=== PATIENT | male | born 2000 | race Caucasian/White ===

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

== ENCOUNTER 2022-01-19 14:37 | Inpatient (IN) | payer OTHER ==
[~2022-01-19] VITALS: Ht 175.3 cm; Wt 97.7 kg
[~2022-01-19 14:37] MED LIST: KEFLEX500 MG PO
--- NOTE | 2022-01-19 20:35 | NUR ---
REPORT RECEIVED FROM ED RN.
--- NOTE | 2022-01-19 21:30 | NUR ---
PT TO FLOOR VIA STRETCHER. ORDERS RECEIVED. PT ALERT AND ORIENTED. ABLE TO TRANSFER SELF FROM STRETCHER TO BED. ADMISSION COMPLETE. PT REPORTS PAIN IN RIGHT FOOT AND GENERAL DISCOMFORT. REFUSES PRN TYLENOL AT THIS TIME. RIGHT FOOT RED, SWOLLEN, AND WARM TO THE TOUCH. REDNESS OUTLINED. PT REPORTS NUMBNESS AND TINGLING IN TOES. PEDAL PULSES STRONG AND BRISK CAP REFILL NOTED. RLE ELEVATED ON PILLOW. IV ABX INFUSING PER ORDER. FAMILY VISITOR IN ROOM. PT ANXIOUS ABOUT HOSPITAL STAY STATING HE DID NOT WANT TO STAY THE NIGHT. EDUCATION PROVIDED REGARDING ILLNESS AND NEED FOR IV ABX. PT AGREEABLE TO STAY AT LEAST THIS NIGHT. PT ORIENTED TO ROOM AND NURSE CALL LIGHT. DENIES FURTHER QUESTIONS OR CONCERNS AT THIS TIME. CALL LIGHT IN REACH.
--- NOTE | 2022-01-19 22:40 | NUR ---
IVF HUNG PER ORDER. IV ABX INFUSING WNL. PT RESTING IN BED LOOKING AT PHONE. RLE ELEVATED ON PILLOW. FRESH WATER PROVIDED. CALL LIGHT IN REACH.
--- NOTE | 2022-01-20 00:16 | NUR ---
IV PUMP ALARMING. ISSUE RESOLVED. PT DIAPHORETIC AND SHIVERING. TEMP 98.7. LINENS AND GOWN CHANGED. WARM BLANKET PROVIDED.
--- NOTE | 2022-01-20 01:00 | NUR ---
PIV IN LEFT AC FLUSHED WITH 10 ML NS. BRISK BLOOD RETURN NOTED. IV VANCO INFUSING WNL. PT DENIES PAIN WITH INFUSION. PT EDUCATED TO NOTIFY RN IF INFUSION BECOMES PAINFUL. PT VERBALIZES UNDERSTANDING. TEMP 98.7. HR 70'S. SpO2 HIGH 90'S. NO FURTHER NEEDS.
--- NOTE | 2022-01-20 03:01 | NUR ---
PT RESTING WITH EYES CLOSED. AWAKENS FOR VS. WNL. DENIES NEEDS. CALL LIGHT IN REACH.
--- NOTE | 2022-01-20 06:25 | NUR ---
VS AND I&O COMPLETE. PT REPORTS RIGHT FOOT PAIN 01/15. REFUSES PRN FOR PAIN WHEN OFFERED. IV ABX INFUSING WNL. RLE ELEVATED ON PILLOW. REDNESS REMAINS WITHIN OUTLINE. PULSES STRONG BLE. BRISK CAP REFILL NOTED. PT ANXIOUS ABOUT HOSPITALIZATION WANTING TO KNOW WHEN HE CAN GO HOME. DISCUSSED MD WILL BE IN TO MAKE PLAN OF CARE AND PROVIDE RELEASE FROM WORK. PT RECEPTIVE. DENIES FURTHER NEEDS. CALL LIGHT IN REACH.
--- NOTE | 2022-01-20 09:10 | NUR ---
HAD RECD. REPORT FROM NIGHT RN AND ASSUMED ALL CARE OF PT. PT. RESTING IN BED, RIGHT FOOT CELLULITIS AND REDNESS, TENDERNESS AND SWELLING. HE CAN AMBULATE WITH PARTIAL WEIGHT BEARING TO THE BR AND CALLS FOR ALL NEEDS.
--- NOTE | 2022-01-20 10:00 | NUR ---
CALLED TO ROOM, IV HANGING OUT OF SITE ON THE RIGHT ARM, WILL USE THE OTHER IV IN THE LEFT ARM. TEACHING COMPLETED REGARDING SWELLING AT SITE AND INFILTRATION.
--- NOTE | 2022-01-20 12:28 | NUR ---
EXPLAINED ORDER THIS MORNING FOR THE TDAP AND PT. WANTED TO TALK TO HIS FATHER AND FAMILY BEFORE ACCEPTING THIS. WHEN I CHECKED BACK WITH PT. HE SAID THAT HE WILL ACCEPT THE TDAP SHOT.
--- NOTE | 2022-01-20 14:49 | NUR ---
PHARMACY TO SEND TDAP. IV INFUSING ABX, PODIATRY CONSULT IN PROGRESS.
--- NOTE | 2022-01-20 16:00 | NUR ---
Pt chronic ft. issue. Works at [employer]. Concerned as he is unable to work. He does receive food stamps and brother in the room, states pt can stay with him. Pt does not have a pcp, but would like one from [facility]. Will work on this tomorrow. Pt denies other needs. Dr. Duran in the see pt.
--- NOTE | 2022-01-20 17:39 | NUR ---
medications reconciled- patient takes no medications
--- NOTE | 2022-01-20 18:30 | NUR ---
IV VANCOMYCIN DOSE WAS LATE D/T TROUGH DRAWN AT 1600 AND THEN WAS HIGH AND PHARMACY REDOSED MED AND SENT TO FLOOR LATER. IV IN R ARM DC'D EARLIER ACCIDENTALLY BY PT. THEN AFTER ABX'S WERE HANGING A WHILE THE L AC WAS BURNING AND LEAKING, NOT ABLE TO SAVE. IV'S ATTEMPTED X 3 WITH A #20 IN THE RIGHT AC, NEXT TO ORIGINAL SITE. IV ABX HUNG AGAIN, DR. RITTER CALLED TO ALERT TO POSSIBLE NEED FOR PICC RN, NO NEW ORDERS. PT. STATES HE ALWAYS HAS TROUBLE WITH IV'S.
--- NOTE | 2022-01-20 19:35 | NUR ---
SHIFT REPORT RECEIVED FROM DAYSHIFT RN JOSE AT BEDSIDE. pt AWAKE AND RESTING IN BED, HOUSE SUP JIMY IN ROOM TO START SECOND IV VIA US. IV ABX INFUSING WNL TO RIGHT AC. REDDNESS BETWEEN FIRST AND SECOND OUTLINE, WILL MONITOR FOR CHANGES. NO ADDITIONAL NEEDS OR CONCERNS VERBALIZED.
--- NOTE | 2022-01-20 19:58 | NUR ---
HOUSE SUP INSERTED IV VIA ULTRASOUND IN THE LEFT UPPER ARM, #18 G AND 2 1/2 INCHES LONG CATH. TOLERATED FAIRLY WELL. PRIMARY IVF TO RUN LR W 20K AT 125 AND IV VANCOMYCIN WITH DOSE INCREASE 500 MG BAG, CEFEPIME LONG RUN AND FLAGYL IV.
--- NOTE | 2022-01-20 20:55 | NUR ---
in to get vitals, pt up to the bathroom independently, voided and back to bed, soda provided, pt has two friends in room at this time
--- NOTE | 2022-01-20 22:00 | NUR ---
ASSESSMENT COMPLETE, pt AWAKE AND RESTING IN BED. IV ALARMING, pt REPORTS HE DIDN'T WANT TO BE "THAT JANE AND BOTHER US". pt EDUCATED ON NEED TO CALL ENGLISH FACULTY MEMBER IF PUMP ALARMS, pt VERBALIZED EDUCATION. IV ABX INFUSING DIRECTED AND IV FLUIDS INFUSING DIRECTED, IV SITES X2 WNL. BLOOD RETURN NOTED TO BOTH. RLE ELEVATED IN BED WITH PILLOW, pt STATES, "WON'T THAT JUST MOVE THE INFECTION TO THE REST OF MY BODY, pt EDUCATED ON INFECTION CONTROL AND EDEMA MANAGEMENT. STRONG PEDAL PULSES NOTED TO BILATERAL FEET, REDDNESS REMAINS BETWEEN THE INITIAL AND SECOND OUTLINE. WILL MONITOR FOR CHANGES, CALL LIGHT IN REACH.
--- NOTE | 2022-01-20 23:36 | NUR ---
SCHEDULED IV ABX INFUSING DIRECTED, IV SITES X2 BOTH WNL. NO ADDITIONAL NEEDS, CALL LIGHT IN REACH. RLE REMAISN ELEVATED IN BED WITH PILLOW/CHUCKS.
--- NOTE | 2022-01-21 01:35 | NUR ---
ROUNDED ON pt, pt RESTING QUIETLY ON RA. RR EVEN AND UNLABORED, NO DISTRESS NOTED. IV SITES X2 WNL- IV FLUIDS AND IV ABX BOTH INFUSING DIRECTED. CALL LIGHT IN REACH, WILL CONTINUE TO MONITOR FOR CHANGES.
--- NOTE | 2022-01-21 04:12 | NUR ---
ROUNDED ON pt, pt RESTING IN BED. EYES CLOSED, RR EVEN AND UNLABORED. NO DISTRESS NOTED. IV SITES X2 WNL, FLUIDS AND IV ABX INFUSING DIRECTED. CALL LIGHT IN REACH.
--- NOTE | 2022-01-21 05:15 | NUR ---
assessment complete, no acute changes. pt awoke to voice. reddness to rle appears lessened since start of shift, remains elevated in bed. iv sites x2 wnl, new bag iv fluids hung and infusing as directed and scheduled iv abx also infusing wnl. no further needs, vss and fresh water provided. pt denies need to void, will monitor. lab in room for am blood draw.
--- NOTE | 2022-01-21 06:39 | NUR ---
SCHEDULED IV FLAGYL INFUSING DIRECTED. IV SITES X2 BOTH WNL. pt VERBALIZES HE PLANS TO ATTEMPT TO VOID SOON. WILL MONITOR. CALL LIGHT IN REACH.
--- NOTE | 2022-01-21 07:05 | NUR ---
SCHEDULED IV ABX INFUSING DIRECTED, IV SITESX [address] HEADLEY IN ROOM WITH pt. CALL LIGHT IN REACH.
--- NOTE | 2022-01-21 07:30 | NUR ---
REPORT RECEIVED FROM NIGHT RN AND PT. CARE RESUMED. PT. IS ALERT AND ORINETED. DENIES PAIN AT THIS TIME. DR. HEADLEY TOOK A CULTURE THAT THIS NURSE SENT TO THE LAB.
--- NOTE | 2022-01-21 09:00 | NUR ---
PT. IS ALERT AND ORIENTED. HE DENIES PAIN. RIGHT FOOT WRAPPED BY . DRESSING IS C.D.I. CMS INTACT. IVF INFUSING. ASSESSMENT COMPLETED. PT. LEFT RESTING WITH CALL LIGHT IN REACH.
--- NOTE | 2022-01-21 13:15 | NUR ---
PT. USED CALL LIGHT APPROPRIATELY FOR IV BEEPING. ABX DONE AND IV SALINE LOCKED. PT. HAS GOOD APPETITE AND DENIES PAIN AT THIS TIME. ASSESSMENT COMPLETED. DISCUSSED SHOWERING. LEFT RESTING WITH CALL LIGHT IN REACH
--- NOTE | 2022-01-21 14:40 | NUR ---
WENT TO CHECK ON PATIENT TO SEE IF HE WAS DONE WITH HIS SHOWER AND HE WAS. SO WIPED UP HIS SHOWER FLOOR. HE BRUSHED HIS TEETH. PATIENT IS IN BED. TIA AND I WRAPPED HIS FOOT REALY WELL.
--- NOTE | 2022-01-21 14:42 | NUR ---
No change in plan for dc at this time. Pt cont. to plan for dc to brothers home when medically cleared.
--- NOTE | 2022-01-21 18:31 | NUR ---
PT. EDUCATED ABOUT IV AND ASKS GOOD QUESTIONS. RLE DRESSING REMAINS CDI AND ELEVATED. HE DENIES PAIN OR FURTHER NEEDS. LEFT RESTING WITH CALL LIGHT IN REACH.
--- NOTE | 2022-01-21 19:24 | NUR ---
RECEIVED RPORT FROM DAY SHIFT RN. PATIENT IS RESTING IN RECLINER. NO NEEDS NOTED. CALL LIGHT IN REACH. IV INFUSING PER ORDER.
--- NOTE | 2022-01-21 20:25 | NUR ---
IV PUMP ALARMING, IV VANCO COMPLETE, IV SITES X2 WNL. IV MAINTENANCE FLUIDS INFUSING DIRECTED, NO FURTHER NEEDS. CALL LIGHT IN REACH.
--- NOTE | 2022-01-21 21:56 | NUR ---
PATIENT ASSESMENT COMPLETED. PATIENTS VITALS TAKEN AND RECORDED. URINAL EMPTIED. INTAKE AND OUTPUT RECORDED. PATIENT RATES PAIN AT A 3/10, AND DENIES THE NEED FOR PAIN MEDICATION AT THIS TIME. PATIENTS IV INFUSING PER ORDER. ABX INFUSING PER ORDER. PATIENT AMBUALTED X2 LAPS IN THE HALLWAY. PATIENT IS BACK IN BED RESTING. NO FURTHER NEEDS NOTED. IV ON LEFT UPPER ARM FLUSHED AND SL PER ORDER. CALL LIGHT IN REACH.
--- NOTE | 2022-01-21 23:44 | NUR ---
PATIENT IS RESTING IN BED ON HIS PHONE. PATIENT DENIES ANY NEEDS. CALL LIGHT IN REACH. IV INFUSING PER ORDER. CALL LIGHT IN REACH.
--- NOTE | 2022-01-22 02:33 | NUR ---
PATIENT IS RESTING IN BED WITH EYES CLOSED, RR 16. CALL LIGHT IN REACH.
--- NOTE | 2022-01-22 04:19 | NUR ---
PATIENT IS RESTING IN BED WITH EYES CLSOED, RR 16. CALL LIGHT IN REACH. IV INFUSING PER ORDER.
--- NOTE | 2022-01-22 06:18 | NUR ---
PATIENTS VITALS TAKEN AND RECORDED. INTAKE AND OUTPUT RECORDED. PATIENT DENIES ANY PAIN. AM IVABX INFUSING PER ORDER. PATIENT DENIES ANY NEEDS CALL LIGHT IN REACH.
--- NOTE | 2022-01-22 09:00 | NUR ---
REPORT RECEIVED FROM NIGHT RN AND PT. CARE RESUMED. PT. IS ALERT AND ORIENTED TO ALL. HE DENIES PAIN AND STATES HE FEELS BETTER. RIGHT FOOT IS WRAPPED AND C.D.I. REDDNESS AT SITE IS IMPROVED AND WITHIN OUTLINE WITH TRACE EDEMA. ASSESSMENT COMPLETED. JAMEEL IV FLUSHES WELL WITH NO SIGNS OF INFLAMATION RO INFILTRATION, BUT PT. REPORTS MILD BURNING WHILE ABX WAS INFUSING. WILL CONTINUE TO MONITOR. PT. STATES HE WOULD LIKE TO GO HOME. DISCUSSED IMPORTANCE OF TREATMENT AND IV ABX FOR INFECTION. LEFT RESTING WITH CALL LIGHT IN REACH.
--- NOTE | 2022-01-22 10:48 | NUR ---
PT. AMBULATED 3 LAPS AROUND THE UNIT INDEPENDENTLY AND TOLERATED WELL.
--- NOTE | 2022-01-22 11:50 | NUR ---
CONNECTED WITH PT HE AMBULATED IN HALLWAY AND FOLLOWED TO . HE IS ALERT, ORIENTED AND REQUESTED THAT HIS FAMILY BE ABLE TO VISIT. THEY HAVE TRAVELLED [address] TO BE HERE FOR HIM. MATTIE TELLEZ SAID NANCY MERRILL HAD GIVEN APPROVAL FOR VISITS INFORMED PT, GAVE BLESSING. WILL FOLLOW
[2022-01-22] MEDS ORDERED: CLINDAMYCIN HC300 MG PO (13:22)
[2022-01-22] MEDS ORDERED: CIPROFLOXACIN500 MG PO (13:23)
--- NOTE | 2022-01-22 13:30 | NUR ---
PT. USED CALL LIGHT FOR ASSISTANCE. HE IS DRESSED AND ASKING IF HE CAN TAKE OUT HIS OWN IV. PT. STATES HE IS SURE HE WANTS TO LEAVE BECAUSE HE IS JUST SITTING AROUND. DISCUSSED RISKS OF LEAVING AND TREATMENT NEEDED. UPDATED AND AMA FORM SIGNED. PT. GIVEN SUPPLIES AND INSTRUCTIONS FOR DRESSING CHANGE, INSTRUCTIONS AND SCRIPT INSTRUCTIONS. HE LEFT WITH ALL BELONGINGS AND AMBULATED INDEPENDENTLY.
== END 2022-01-22 13:40 | disposition left against medical advice (07) | DRG 603 ==
LOC: ED 14:37 → MS 19:49
PROVIDERS: ADMIT Internal Medicine; ATTEND Internal Medicine
PROC: 3E03329 Introduction of Other Anti-infective into Peripheral Vein, Percutaneous Approach (ICD-10-PCS; principal; 2022-01-20)
PROC: 3E0234Z Introduction of Serum, Toxoid and Vaccine into Muscle, Percutaneous Approach (ICD-10-PCS; 2022-01-20)
DX: L03.115 Cellulitis of right lower limb (principal); R63.0 Anorexia; Z68.28 Body mass index [BMI] 28.0-28.9, adult; Z20.822 Contact with and (suspected) exposure to COVID-19; Z23 Encounter for immunization; J45.909 Unspecified asthma, uncomplicated; Z98.890 Other specified postprocedural states
CPT/HCPCS: 36415; 73630; 80048; 80053; 80202; 83605; 83735; 85025; 86140; 87040; 87070; 87075; 87205; 87502; 90715; 96374; 96375; 99284-25; A9270; J0692; J3370; J3480; J7060; J7120; U0003